=== PATIENT | female | born 1935 | race Caucasian/White ===

== ENCOUNTER → 2016-11-26 | Outpatient (CLI) | payer OTHER | LOC: FIMAGING 09:22 | PROVIDERS: ATTEND Family Medicine | DX: Z12.39 Encounter for other screening for malignant neoplasm of breast (principal); N64.4 Mastodynia | CPT/HCPCS: 76641; G0204 ==

== ENCOUNTER 2016-11-27 10:12 | Emergency (ER) | payer OTHER ==
[2016-11-27 10:20] VITALS: TEMP 97.7
[2016-11-27] MEDS ORDERED: NS 1,000 ML IV ONE (10:34)
[2016-11-27 10:51] LABS: % IMMATURE GRANULYOCYTES 0.2 % (0.0-1.1); ABSOLUTE IMMATURE GRANULOCYTES 0.01 10^3/uL (0.00-0.10); ADD DIFF? NO; ADD MORPH? NO; ADD SCAN? NO; ATYPICAL LYMPHOCYTE FLAG 30 (0-99); FRAGMENT RBC FLAG 0 (0-99); HEMATOCRIT 43.1 % (38.0-47.0); HEMOGLOBIN 14.5 g/dL (12.6-16.3); LEFT SHIFT FLG 0 (0-99); LIPEMIA HEMOLYSIS FLAG 80 (0-99); MEAN CELL HEMOGLOBIN 31.1 pg (27.9-34.1); MEAN CELL HEMOGLOBIN CONCENTR. 33.6 g/dL (32.4-36.7); MEAN CELL VOLUME 92.5 fL (81.5-99.8); MEAN PLATELET VOLUME 9.1 fL (8.7-11.7); PLATELET CLUMPS FLAG 0 (0-99); PLATELET COUNT 209 10^3/uL (150-400); RED BLOOD CELL COUNT 4.66 10^6/uL (4.18-5.33); RED CELL DISTRIBUTION WIDTH 12.9 % (11.5-15.2)
--- NOTE | 2016-11-27 10:58 | EDPHY ---
H & P Stated Complaint: Dark loose stools for ~ 1 mo;on Coumadin Time Seen by Provider: 11/27/16 10:25 HPI/ROS: CHIEF COMPLAINT: Dark stool on Coumadin HISTORY OF PRESENT ILLNESS: The patient has a several week history of reported dark loose stools. She is on Coumadin which has been therapeutic by her report. She contacted her primary care provider today who recommended she come to the ED. The patient denies any significant abdominal pain. She does have a history of irritable bowel syndrome. The patient denies recent antibiotic use or travel outside the [place]. The patient denies symptoms of bloody diarrhea. The patient denies any additional acute complaints. REVIEW OF SYSTEMS: A comprehensive 10 point review of systems is otherwise negative aside from elements mentioned in the history of present illness. 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 - Social History Smoking Status: Never smoked - Physical Exam Exam: General Appearance: Alert, no distress Eyes: Pupils equal and round no pallor or injection ENT, Mouth: Mucous membranes moist Respiratory: There are no retractions, lungs are clear to auscultation Cardiovascular: Regular rate and rhythm Gastrointestinal: Abdomen is soft and nontender, no masses, bowel sounds normal Rectal: Brown stool noted Neurological: A&O, normal motor function, normal sensory exam, normal cranial nerves Skin: Warm and dry, no rashes Musculoskeletal: Neck is supple nontender Extremities: symmetrical, full range of motion Constitutional: Initial Vital Signs Temperature (C) 36.5 C 11/27/16 10:15 Heart Rate 62 11/27/16 10:15 Respiratory Rate 18 11/27/16 10:15 Blood Pressure 148/70 H 11/27/16 10:15 O2 Sat (%) 96 11/27/16 10:15 O2 Delivery Mode Room Air Allergies/Adverse Reactions: adhesive Allergy (Mild, Verified 11/27/16 10:20) skin irritation mercury (elemental) [Mercury (Elemental)] Allergy (Unknown, Verified 11/27/16 10 :20) OINTMENT OF DALIA Allergy (Unknown, Uncoded 11/27/16 10:20) Home Medications: Medication Instructions Recorded Gabapentin [Neurontin 300 MG (*)] 300 mg PO TID #90 cap 05/08/15 Warfarin Sodium [Coumadin 2.5MG 5 mg PO DAILY16 05/25/15 (*)] Medical Decision Making ED Course/Re-evaluation: The patient presents to the ED for reported dark stool in the setting of anticoagulant use intermittently for the past several weeks. The patient's abdominal examination is benign and she is in no acute distress. She is noted to be hemodynamically stable. The patient did have a rectal examination which demonstrates brown stool which is Hemoccult negative. The patient's INR is 3.4. She has no evidence of an anemia noted on her CBC. At this point time I see no evidence of an obvious significant gastrointestinal bleed, the patient has no evidence of an acute abdomen and is otherwise without acute complaints. I do feel the patient can be discharged home at this point time. The patient will follow up with her primary care provider as needed. She is discharged home with customary aftercare instructions and return precautions. Differential Diagnosis: Differential diagnosis considered includes upper GI bleed, lower GI bleed, irritable bowel syndrome, supratherapeutic anticoagulation level - Data Points Laboratory Results: Laboratory Results 11/27/16 10:40 11/27/16 11/27/16 11/27/16 11:04 10:40 10:40 WBC RBC Hgb POC Hgb Hct POC Hct MCV MCH MCHC RDW Plt Count MPV Neut % (Auto) Lymph % (Auto) [place] % (Auto) Eos % (Auto) Baso % (Auto) Nucleat RBC Rel Count Absolute Neuts (auto) Absolute Lymphs (auto) Absolute Monos (auto) Absolute Eos (auto) Absolute Basos (auto) Absolute Nucleated RBC Immature Gran % Immature Gran # PT 38.8 SEC H SEC (12.0-15.0) INR 3.89 H (0.83-1.16) APTT 49.6 SEC H SEC (23.0-38.0) POC Sodium Sodium Pending POC Potassium Potassium Pending POC Chloride Chloride Pending Carbon Dioxide Pending Anion Gap Pending POC BUN BUN Pending Creatinine Pending POC Creatinine Estimated GFR Pending Glucose Pending POC Glucose Calcium Pending Stool Occult Bld Scrn NEGATIVE (NEGATIVE) 11/27/16 11/27/16 10:40 10:38 WBC 5.22 10^3/uL 10^3/uL (3.80-9.50) RBC 4.66 10^6/uL 10^6/uL (4.18-5.33) Hgb 14.5 g/dL g/dL (12.6-16.3) POC Hgb 15.6 gm/dL gm/dL (12.6-16.3) Hct 43.1 % % (38.0-47.0) POC Hct 46 % % (38-47) MCV 92.5 fL fL (81.5-99.8) MCH 31.1 pg pg (27.9-34.1) MCHC 33.6 g/dL g/dL (32.4-36.7) RDW 12.9 % % (11.5-15.2) Plt Count 209 10^3/uL 10^3/uL (150-400) MPV 9.1 fL fL (8.7-11.7) Neut % (Auto) 56.3 % % (39.3-74.2) Lymph % (Auto) 29.7 % % (15.0-45.0) [place] % (Auto) 9.4 % % (4.5-13.0) Eos % (Auto) 3.6 % % (0.6-7.6) Baso % (Auto) 0.8 % % (0.3-1.7) Nucleat RBC Rel Count 0.0 % % (0.0-0.2) Absolute Neuts (auto) 2.94 10^3/uL 10^3/uL (1.70-6.50) Absolute Lymphs (auto) 1.55 10^3/uL 10^3/uL (1.00-3.00) Absolute Monos (auto) 0.49 10^3/uL 10^3/uL (0.30-0.80) Absolute Eos (auto) 0.19 10^3/uL 10^3/uL (0.03-0.40) Absolute Basos (auto) 0.04 10^3/uL 10^3/uL (0.02-0.10) Absolute Nucleated RBC 0.00 10^3/uL 10^3/uL (0-0.01) Immature Gran % 0.2 % % (0.0-1.1) Immature Gran # 0.01 10^3/uL 10^3/uL (0.00-0.10) PT INR APTT POC Sodium 138 mEq/L mEq/L (134-144) Sodium POC Potassium 4.2 mEq/L mEq/L (3.3-5.0) Potassium POC Chloride 96 mEq/L L mEq/L (97-110) Chloride Carbon Dioxide Anion Gap POC BUN 20 mg/dL mg/dL (7-23) BUN Creatinine POC Creatinine 1.0 mg/dL mg/dL (0.6-1.0) Estimated GFR Glucose POC Glucose 82 mg/dL mg/dL (70-100) Calcium Stool Occult Bld Scrn Medications Given: Discontinued Medications Sodium Chloride (Ns) 1,000 mls @ 0 mls/hr IV ONCE ONE; Wide Open PRN Reason: Protocol Stop: 11/27/16 10:35 Last Admin: 11/27/16 10:41 Dose: 1,000 mls Point of Care Test Results: 11/27/16 10:38 POC Sodium 138 POC Potassium 4.2 POC Chloride 96 L POC BUN 20 POC Creatinine 1.0 POC Glucose 82 Departure - Departure Disposition: Home, Routine, Self-Care Clinical Impression: History of atrial fibrillation, Stool color abnormal Condition: Good Instructions: A-fib (Atrial Fibrillation) (ED) Additional Instructions: 1. Please return to the emergency department for severe pain, lightheadedness, fever or other concerns. 2. At this point time we see no evidence of a significant gastrointestinal bleed. Your INR level is 3.4. Your blood counts are also within normal limits. 3. Please follow up as scheduled with your primary care provider. Referral to Gastroenterology may be indicated further evaluation of any ongoing intestinal complaints. Referrals: Romeo Edouard [Primary Care Provider] - As per Instructions
[2016-11-27 11:00] LABS: INR 3.89 (0.83-1.16); PROTIME(PATIENT) 38.8 SEC (12.0-15.0)
[2016-11-27 11:01] LABS: APTT 49.6 SEC (23.0-38.0)
[2016-11-27 11:19] LABS: ANION GAP 8 mEq/L (8-16); CALCIUM 9.6 mg/dL (8.5-10.4); CARBON DIOXIDE 28 mEq/l (22-31); CHLORIDE 99 mEq/L (97-110); CREATININE 0.9 mg/dL (0.6-1.0); GLOMERULAR FILTRATION RATE 60; GLUCOSE 75 mg/dL (70-100); POTASSIUM 4.4 mEq/L (3.5-5.2); SODIUM 135 mEq/L (134-144)
[2016-11-27 11:29] VITALS: BP 141/81; PULSE 58; RESP 16; O2SAT 98
== END 2016-11-27 11:29 | disposition home or self-care (01) ==
DX: R19.5 Other fecal abnormalities (principal); Z79.01 Long term (current) use of anticoagulants; Z86.79 Personal history of other diseases of the circulatory system
CPT/HCPCS: 82947-QW

== ENCOUNTER → 2016-12-07 | Outpatient (CLI) | payer OTHER ==
[~2016-12-07] MED LIST: BUPIVACAINE 0.5% 10 ML SDV ONE; LIDO/EPI 1% **Not for Epidural 20 ML MDV ONE; LIDOCAINE 1% 300 MG/30 ML SDV ONE; THROMBIN (BOVINE) 5,000 UNIT VIAL TP ONE
== END ==
LOC: FIMAGING 07:13
PROVIDERS: ATTEND Family Medicine
PROC: 0HBU3ZX Excision of Left Breast, Percutaneous Approach, Diagnostic (ICD-10-PCS; principal; 2016-12-07)
DX: C50.412 Malignant neoplasm of upper-outer quadrant of left female breast (principal)
CPT/HCPCS: 19083; 88305; 88341; 88342; 88360; G0206

== ENCOUNTER 2017-01-05 | Inpatient (IN) | payer OTHER ==
[2017-01-05] MEDS ORDERED: LR 1,000 ML IV ONE (23:54)
[2017-01-05] MEDS ORDERED: ACETAMINOPHEN 650 MG/20.3 ML UDCUP PO PRN (23:55)
[2017-01-05] MEDS ORDERED: HYDROCODONE/APAP 5/325 TAB PO PRN (23:55)
[2017-01-05] MEDS ORDERED: IBUPROFEN 600 MG TAB PO PRN (23:55)
[2017-01-05] MEDS ORDERED: ONDANSETRON 4 MG/2 ML VIAL IVP PRN (23:55)
--- NOTE | 2017-01-06 00:20 | GHP ---
[f rep st] HISTORY AND PHYSICAL Amended report REASON FOR ADMISSION: Dehydration, lightheadedness. HISTORY OF PRESENTING ILLNESS: 81-year-old female with a longstanding history of paroxysmal atrial fibrillation is status post left partial mastectomy with axillary sentinel node biopsy this afternoon. She was discharged to the recovery room in good condition. The patient called this evening with complaints of a painful, enlarging chest wall hematoma. She was seen in the office this evening and had her hematoma evacuated. While this alleviated her chest discomfort, she complained of lightheadedness and inability to ambulate afterwards. She lives at home with her daughter who is unable to care for her. She is being admitted for overnight observation and fluid rehydration at this time. She is currently without chest pains or shortness of breath. She denies neurologic complaints. PAST MEDICAL HISTORY: Paroxysmal atrial fibrillation. Lumbar spine schwannoma. Prior history of right breast DCIS, newly diagnosed left breast invasive ductal carcinoma. PAST SURGICAL HISTORY: Open cholecystectomy, total abdominal hysterectomy, bilateral salpingo-oophorectomy, right lumpectomy, left partial mastectomy with axillary sentinel node biopsy. MEDICATIONS: Gabapentin, warfarin, glucosamine, vitamin B12, vitamin D3, probiotic, vitamin C, magnesium. ALLERGIES: No known drug allergies. SOCIAL: Noncontributory. PHYSICAL EXAM: GENERAL: The patient is alert, appropriate, pale, moving with maximal assist. VITAL SIGNS: Blood pressure 80/60, pulse 70s. HEART: Regular. LUNGS: Clear. CHEST WALL: Tense left chest wall hematoma prior to evacuation. Normal right chest. ABDOMEN: Soft, nontender. EXTREMITIES: Bilateral upper extremities unremarkable. Axillary incision flat. IMPRESSION: 1. Status post left lumpectomy with axillary sentinel node biopsy; postoperative hematoma, status post drainage. 2. History of atrial fibrillation, on Coumadin which has been held perioperatively. 3. Dehydration, lightheadedness. PLAN: Patient is being admitted for fluid rehydration. Assuming continued progress, would anticipate discharge to home in a.m.; if ongoing complaints of lightheadedness or dizziness, will pursue further cardiac workup at that time, /[id number]/MODL Add acc#, , pratibha CORDOVA
[2017-01-06 00:29] VITALS: RESP 16
[2017-01-06] MEDS: D5W 1/2 NS W/ 20 KCl/L 1,000 ML IV SCH ×2 (00:40→14:54)
--- NOTE | 2017-01-06 09:41 | SOAPPROG ---
SOAP Progress Note Assessment/Plan: Assessment:feeling much better with IVF. no cp or sob. no lightheadedness. afebrile. bp 100's. p 50's. comfortable. arabella wrap in place - breast flat. signif progress. ambulate. diet as able. anticipate dc today if samara above. Plan: 01/06/17 09:39 Objective: Vital Signs Temp Pulse Resp BP Pulse Ox 37.4 C 78 16 124/59 H 92 01/06/17 07:54 01/06/17 07:54 01/06/17 07:54 01/06/17 07:54 01/06/17 07:54 01/05/17 01/06/17 01/07/17 05:59 05:59 05:59 Intake Total 700 Balance 700 ICD10 Worksheet Patient Problems: Problems Problem Status Onset Subarachnoid hemorrhage Active New onset atrial fibrillation Acute Visual changes Acute Syncope Acute
[2017-01-06 10:12] LABS: % IMMATURE GRANULYOCYTES 0.1 % (0.0-1.1); ABSOLUTE IMMATURE GRANULOCYTES 0.01 10^3/uL (0.00-0.10); ADD DIFF? NO; ADD MORPH? NO; ADD SCAN? NO; ATYPICAL LYMPHOCYTE FLAG 0 (0-99); FRAGMENT RBC FLAG 0 (0-99); HEMATOCRIT 34.4 % (38.0-47.0); HEMOGLOBIN 11.5 g/dL (12.6-16.3); LEFT SHIFT FLG 0 (0-99); LIPEMIA HEMOLYSIS FLAG 80 (0-99); MEAN CELL HEMOGLOBIN 31.6 pg (27.9-34.1); MEAN CELL HEMOGLOBIN CONCENTR. 33.4 g/dL (32.4-36.7); MEAN CELL VOLUME 94.5 fL (81.5-99.8); PLATELET CLUMPS FLAG 0 (0-99); PLATELET COUNT 179 10^3/uL (150-400); RED BLOOD CELL COUNT 3.64 10^6/uL (4.18-5.33); RED CELL DISTRIBUTION WIDTH 12.5 % (11.5-15.2)
--- NOTE | 2017-01-06 10:15 | CPEKG ---
Heart Rate: 83 RR Interval: 723 P-R Interval: 184 QRSD Interval: 86 QT Interval: 372 QTC Interval: 437 P [place]: 71 QRS [place]: -32 T Wave [place]: 69 EKG Severity - OTHERWISE NORMAL ECG - EKG Impression: SINUS RHYTHM EKG Impression: LEFT AXIS DEVIATION Electronically Signed By: Asim Olea 06-Jan-2017 14:59:51
[2017-01-06 10:44] LABS: ANION GAP 8 mEq/L (8-16); CALCIUM 8.5 mg/dL (8.5-10.4); CARBON DIOXIDE 25 mEq/l (22-31); CHLORIDE 105 mEq/L (97-110); CREATININE 0.8 mg/dL (0.6-1.0); GLOMERULAR FILTRATION RATE > 60; GLUCOSE 122 mg/dL (70-100); POTASSIUM 3.8 mEq/L (3.5-5.2); SODIUM 138 mEq/L (134-144)
[2017-01-06] MEDS ORDERED: HYDROCODONE PO PRN (10:49)
[2017-01-06] MEDS ORDERED: ACETAMINOPHEN PO PRN (10:49)
[2017-01-06 10:55] LABS: TROPONIN I < 0.012 ng/mL (0-0.034)
[2017-01-06] MEDS: GABAPENTIN 300 MG CAP PO SCH (16:20)
--- NOTE | 2017-01-06 17:11 | SOAPPROG ---
SOAP Progress Note Assessment/Plan: Assessment: slow progress - working with PT with success - no other new complaints. not ready for discharge secondary to generalized deconditioning. discussed in detail with patient and family. anticipate dc to home tomorrow feeling much better with IVF. no cp or sob. no lightheadedness. afebrile. bp 100's. p 50's. comfortable. arabella wrap in place - breast flat. signif progress. ambulate. diet as able. anticipate dc today if samara above. Plan: 01/06/17 09:39 01/06/17 17:10 Objective: Vital Signs Temp Pulse Resp BP Pulse Ox 37.1 C 72 16 106/51 L 95 01/06/17 14:24 01/06/17 14:24 01/06/17 14:24 01/06/17 14:24 01/06/17 14:24 Laboratory Results 01/06/17 10:02 01/06/17 10:02 01/05/17 01/06/17 01/07/17 05:59 05:59 05:59 Intake Total 700 Balance 700 ICD10 Worksheet Patient Problems: Problems Problem Status Onset Subarachnoid hemorrhage Active New onset atrial fibrillation Acute Syncope Acute Visual changes Acute
[2017-01-06] MEDS ORDERED: GABAPENTIN 300 MG CAP PO SCH (21:00)
[2017-01-07 07:16] VITALS: BP 112/65; PULSE 81; TEMP 98.4; O2SAT 94
--- NOTE | 2017-01-07 07:55 | SOAPPROG ---
SOAP Progress Note Assessment/Plan: Assessment: good night. able to sleep. able to walk independently today am. no surgical pain. no cp or sob. avss. ambulating at present, comfortable, good skin color. breast soft, approp ecchymosis. excellent overnight progress. case reviewed with PT last rubio - they plan to return today am to help with stairs. ready for discharge to home later today after PT sees patient. followup as scheduled. path pending. slow progress - working with PT with success - no other new complaints. not ready for discharge secondary to generalized deconditioning. discussed in detail with patient and family. anticipate dc to home tomorrow feeling much better with IVF. no cp or sob. no lightheadedness. afebrile. bp 100's. p 50's. comfortable. arabella wrap in place - breast flat. signif progress. ambulate. diet as able. anticipate dc today if samara above. Plan: 01/06/17 09:39 01/06/17 17:10 01/07/17 07:52 Objective: Vital Signs Temp Pulse Resp BP Pulse Ox 36.9 C 81 16 112/65 94 01/07/17 07:15 01/07/17 07:15 01/07/17 07:15 01/07/17 07:15 01/07/17 07:15 Laboratory Results 01/06/17 10:02 01/06/17 10:02 01/06/17 01/07/17 01/08/17 05:59 05:59 05:59 Intake Total 700 400 Balance 700 400 ICD10 Worksheet Patient Problems: Problems Problem Status Onset Subarachnoid hemorrhage Active New onset atrial fibrillation Acute Syncope Acute Visual changes Acute
[2017-01-07] MEDS: GABAPENTIN 300 MG CAP PO SCH (08:07)
--- NOTE | 2017-01-07 13:31 | GDS ---
[f rep st] DISCHARGE SUMMARY REASON FOR ADMISSION: Postoperative deconditioning/dehydration. An 81-year-old female with a newly diagnosed left breast cancer. She underwent an outpatient lumpec ish with sentinel node biopsy on Wednesday. She was seen in the office that evening with complaints of an uncomfortable chest wall hematoma which was uneventfully evacuated in the office. The patient was unable to ambulate or function independently. She was admitted for further assessment. Postop erative workup was unremarkable. The patient was evaluated by Physical Therapy services for her gen eralized deconditioning. Fluids were administered for rehydration. She was able to be discharged h ome on the in markedly improved condition, functioning/ambulating independently again. She was to resume all pre-hospital medications. Pathology results were pending. She will be seen in [facility] by Dr. Henriquez as scheduled in the next 2 weeks. Full instructions were explained prior to leaving. /[id number]/MODL
== END 2017-01-07 09:53 | disposition home or self-care (01) | DRG 641 ==
LOC: UNDOADMOB → F3E → OBSVTOIN 01-06 15:00
PROVIDERS: ADMIT Surgery; ATTEND Surgery
DX: E86.0 Dehydration (principal); Z85.3 Personal history of malignant neoplasm of breast; Z90.12 Acquired absence of left breast and nipple; I48.0 Paroxysmal atrial fibrillation
CPT/HCPCS: 97116-GP; 97161-GP

== ENCOUNTER → 2017-01-05 | Outpatient (CLI) | payer OTHER ==
[~2017-01-05] MED LIST changes: -BUPIVACAINE 0.5% 10 ML SDV ONE; -LIDO/EPI 1% **Not for Epidural 20 ML MDV ONE; -THROMBIN (BOVINE) 5,000 UNIT VIAL TP ONE
== END ==
LOC: FIMAGING 07:02
PROVIDERS: ATTEND Surgery
PROC: 3E0W3HZ Introduction of Radioactive Substance into Lymphatics, Percutaneous Approach (ICD-10-PCS; principal; 2017-01-05)
PROC: 0HHU31Z Insertion of Radioactive Element into Left Breast, Percutaneous Approach (ICD-10-PCS; 2017-01-05)
DX: C50.912 Malignant neoplasm of unspecified site of left female breast (principal)
CPT/HCPCS: 19281; 38792; 76098; A9520